=== PATIENT | female | born 1960 | race Caucasian/White ===

== ENCOUNTER 2020-01-15 18:24 | Inpatient (IN) | payer OTHER ==
[2020-01-15 19:46] LABS: Troponin I 0.022 ng/mL (< 0.028)
[2020-01-15] MEDS ORDERED: Acetaminophen 325 MG TAB PO PRN (20:59)
[2020-01-15] MEDS ORDERED: Acetaminophen 650 MG Suppository PR PRN (20:59)
[2020-01-15] MEDS ORDERED: Ondansetron PF 4 MG/2 ML Vial IVP PRN (20:59)
[2020-01-15] MEDS ORDERED: Calcium Carbonate 500 MG ChewTAB PO PRN (20:59)
[2020-01-15] MEDS ORDERED: HYDROcodone/Acetaminophen 5/325 mg Tablet PO PRN (20:59)
[2020-01-15] MEDS ORDERED: Dextrose 50% Abboject 50 ML SYRINGE SLOW IVP PRN (20:59)
[2020-01-15] MEDS ORDERED: Dextrose 5% in Water 1,000 ML IV PRN (20:59)
--- NOTE | 2020-01-15 21:12 | PDOC.HHP ---
Hospitalist HPI - History of Present Illness generalize weakness chest pain History of Present Illness: Case of an 59y/o female with pmhx of morbid obesity, dm, htn and hypercholesterolemia who comes to hospital due generalize weakness chest pain and sob. apparently patient was on he usual state of health until about a week ago when symptoms started. her chief complain is generalize weakness and dizziness but she also complains of chest pain, shortness of breath, nausea, fatigue, and sore throat for the past three days. The patient reports she has not taken any of her medications in over a month as she ran out. The patient was transferred from the [place] ER for chest pain rule out [place], hyperglycemia, hypoxia, and to rule out COVID. the patient was treated with insulin ivfs and abx and transfer to this institution for further workup and management. she reports feels much better at this time. patient reports anorexia for the last 3 days Hospitalist ROS - Review of Systems All other systems reviewed; all pertinent +/- noted in HPI/Subj Hospitalist History - Past Surgical History Past Surgical History: reports: Cholecystectomy Other Surgical History: oophorectomy - Family History Family History: reports: diabetes mellitus, hypertension - Social History Smoking Status: Never smoker Alcohol: reports: None Drugs: reports: none - Exam General Appearance: NAD, awake alert General - other findings: morbid obese ENT: normocephalic atraumatic, no oropharyngeal lesions Neck: supple, symmetric, no JVD Heart: RRR, no murmur, no gallops Respiratory: CTAB, no wheezes, no rales Gastrointestinal: soft, non-tender, non-distended Extremities: no cyanosis, no clubbing, no edema Skin: normal turgor, no lesions, no rashes Neurological: cranial nerve grossly intact, normal sensation to touch Musculoskeletal: normal tone, normal strength, no muscle wasting Psychiatric: normal affect, normal behavior, A&O x 3 Hospitalist Results - Labs Lab results: Troponin I 0.022 ng/mL (< 0.028) 01/15/20 19:14 - EKG Interpretation EKG: no ischemic st changes - Radiology Interpretation Chest x-ray Status: report reviewed by me Additional Comment: no consolidations infiltrates or effusion Hospitalist H&P A/P - Problem (1) Uncontrolled diabetes mellitus Code(s): E11.65 - TYPE 2 DIABETES MELLITUS WITH HYPERGLYCEMIA Status: Acute (2) SIRS (systemic inflammatory response syndrome) Code(s): R65.10 - SIRS OF NON-INFECTIOUS ORIGIN W/O ACUTE ORGAN DYSFUNCTION Status: Acute (3) Chest pain Code(s): R07.9 - CHEST PAIN, UNSPECIFIED Status: Acute (4) HTN (hypertension) Code(s): I10 - ESSENTIAL (PRIMARY) HYPERTENSION Status: Acute (5) Hyperlipidemia Code(s): E78.5 - HYPERLIPIDEMIA, UNSPECIFIED Status: Acute - Plan Plan: uncontrolled DM - transfer papers showed an initial sugar of 638 - treated with iv insulin and ivfs before transfer - will start long acting insulin and ss - will send a1c to help guide discharge therapy - pt resfers increased urine output - serum osmolality at 309 which is increased but not at a level for dx of hyperosmolar state - ivfs - probably the cause of her elevated LA and wbc due to dehydration secondary to uncontrolled DM - stopped taking medication 1m/a sirs - patient met sepsis criteria with elevated LA and elevated WBC no a clear source u/a clean, cxr clean f/u blood cultures - prophylactically started on rocephin - ivfs chest pain - described more as chest tightness - no acute ekg ischemic changes - trend troponins - monitor w telemetry - trend troponins -evaluated modifiable risk facotor w lipid panels and a1c htn / hypercholesterolemia -continue home meds
[2020-01-15] MEDS ORDERED: Insulin Glargine 20 UNITS in Pre-Filled Syringe 1 EACH SC SCH (22:30)
[2020-01-15 23:06] LABS: Troponin I 0.027 ng/mL (< 0.028)
[2020-01-16] MEDS: Sodium Chloride 0.9% 1,000 ML IV SCH ×2 (01:06→16:23)
[2020-01-16] MEDS ORDERED: cefTRIAXone\\ROCEPHIN 2 GM VIAL ONE (01:06)
[2020-01-16] MEDS: cefTRIAXone\\ROCEPHIN 2 GM in Sodium Chloride 0.9% 100 ML IVPB SCH ×2 (01:07→23:40)
[2020-01-16 01:53] LABS: Troponin I Less than 0.010 ng/mL (< 0.028)
[2020-01-16] MEDS ORDERED: Insulin Regular 300 UNITS/3 ML VIAL ONE (06:46)
[2020-01-16] MEDS ORDERED: HumaLOG 300 UNITS/3 ML VIAL ONE (06:46)
[2020-01-16] MEDS: HumaLOG 300 UNITS/3 ML VIAL SC PRN ×2 (06:50→17:22)
[2020-01-16 07:10] LABS: Hemoglobin A1c 12.1 % (4.0-6.0)
[2020-01-16 07:27] LABS: ALT (SGPT) 22 U/L (8-55); AST (SGOT) 19 U/L (5-34); Albumin 3.1 g/dL (3.5-5.0); Alkaline Phosphatase 122 U/L (40-110); Anion Gap 11 mmol/L (10-20); BUN (Urea Nitrogen) 11 mg/dL (9.8-20.1); Bilirubin, Total 0.6 mg/dL (0.2-1.2); Calc. Creatinine Clearance 0 mL/min (70-130); Calcium 7.6 mg/dL (7.8-10.44); Carbon Dioxide 28 mmol/L (22-29); Cardiac Risk 5.3 (Less than 4.5); Chloride 102 mmol/L (98-107); Cholesterol 169 mg/dl (< 200 Desired); Estimated GFR-MDRD 77; Globulin 3.6 g/dL (2.4-3.5); Glucose 330 mg/dL (70-105); HDL Cholesterol 32 mg/dL (>60 Neg Risk); LDL Cholesterol, Calculated 89 mg/dL; Potassium 4.5 mmol/L (3.5-5.1); Protein, Total 6.7 g/dL (6.0-8.3); Sodium 136 mmol/L (136-145); Triglycerides 242 mg/dL (Less than 150)
[2020-01-16 08:06] LABS: Eosinophils 3 % (0-10); Hemoglobin 13.2 g/dL (12.0-16.0); Lymphocytes 26 % (21-51); MDiff Complete? YES; Mean Corpuscular HGB CONC 32.7 g/dL (32.0-36.0); Mean Corpuscular Volume 88.5 fL (78.0-98.0); Mean Platelet Volume 9.4 fL (7.4-10.4); Monocytes 6 % (0-10); Neutrophil 65 % (42-75); Platelet Count 132 thou/uL (130-400); Platelet Morphology Comment Appears Adequate; RBC Morphology Normal; Red Blood Cell (RBC) Count 4.57 mill/uL (4.20-5.40)
[2020-01-16] MEDS ORDERED: Enoxaparin Sodium 40 MG/0.4 ML SYRINGE ONE (09:02)
[2020-01-16] MEDS: Enoxaparin Sodium 40 MG/0.4 ML SYRINGE SC SCH (09:13)
[2020-01-16] MEDS ORDERED: HumaLOG 300 UNITS/3 ML VIAL SC PRN (13:17)
--- NOTE | 2020-01-16 13:23 | PDOC.HOSPP ---
- Subjective Encounter Date: 01/16/20 Encounter Time: 13:18 Subjective: Patient feeling significantly better. States she has not complaints at present. Yesterday she came in due to being short of breath with chest pain. She had low sats according to the patient. She was given Vanc and Cefepime at [place] [facility], received 2.8 L NS IV and given 324 mg of ASA. Also given fluconazole for oral thrush. Known to have history of DM but noncompliant with medications. She has been on hold in the ED overnight. Admitted for ACS rule out and also COVID rule out. She has tested negative for COVID. Was recently started back on fluids due to low BP of 101 systolic, she is asymptomatic. - Objective Result Diagrams: 01/16/20 06:47 01/16/20 06:47 Additional Labs: Accuchecks 01/16/20 01/16/20 01/15/20 06:44 01:05 18:54 POC Glucose 279 H 343 H 338 H Radiology Reviewed by me: Yes EKG Reviewed by me: Yes Hospitalist ROS - Review of Systems Constitutional: denies: fever, chills, sweats, weakness, malaise, other Eyes: denies: pain, vision change, conjunctivae inflammation, eyelid inflammation, redness, other ENT: denies: ear pain, ear discharge, nose pain, nose discharge, nose congestion , mouth pain, mouth swelling, throat pain, throat swelling, other Respiratory: denies: cough, dry, shortness of breath, hemoptysis, SOB with excertion, pleuritic pain, sputum, wheezing, other Cardiovascular: denies: chest pain, palpitations, orthopnea, paroxysmal noc. dyspnea, edema, light headedness, other Gastrointestinal: denies: nausea, vomiting, abdominal pain, diarrhea, constipation, melena, hematochezia, other Genitourinary: denies: dysuria, frequency, incontinence, hematuria, retention, other Musculoskeletal: denies: neck pain, shoulder pain, arm pain, back pain, hand pain, leg pain, foot pain, other Skin: denies: rash, lesions, hailey, bruising, other Neurological: denies: weakness, numbness, incoordination, change in speech, confusion, seizures, other - Medication Medications: Active Medications Generic Name Dose Route Start Last Admin Trade Name Freq PRN Reason Stop Dose Admin Enoxaparin Sodium 40 mg 01/16/20 09:00 01/16/20 09:13 Lovenox SC 40 mg 0900 NAMRATA Administration Ceftriaxone Sodium 2 gm/ 100 mls @ 200 mls/hr 01/15/20 23:00 01/16/20 01:07 Sodium Chloride IVPB 100 mls 2300 NAMRATA Administration Sodium Chloride 1,000 mls @ 70 mls/hr 01/15/20 22:30 01/16/20 01:06 Normal Saline 0.9% IV 1,000 mls .[id number] NAMRATA Administration Insulin Human Lispro 0 units 01/15/20 20:59 01/16/20 06:50 Humalog SC 6 unit .MODERATE SLIDING SC PRN Administration Moderate Correctional Scale - Exam General Appearance: NAD, awake alert Eye: PERRL, anicteric sclera ENT - other findings: poor dentition, oral thrush Neck: supple, no lymphadenopathy Heart: RRR, no murmur, no gallops, no rubs, normal peripheral pulses Respiratory: CTAB, no wheezes, no rales, no ronchi, normal chest expansion Gastrointestinal: soft, non-tender, non-distended, normal bowel sounds, no guarding, no rigidity Extremities: no edema Skin: normal turgor, no lesions, no rashes Neurological: cranial nerve grossly intact, normal sensation to touch, no weakness Musculoskeletal: normal tone, normal strength, no muscle wasting Psychiatric: normal affect, normal behavior, A&O x 3 Hosp A/P (1) Shortness of breath Code(s): R06.02 - SHORTNESS OF BREATH Status: Resolved Plan: CXR negative. Tested negative for COVID. Monitor O2 sats. BNP added on to labs. Echo ordered. (2) Chest pain Code(s): R07.9 - CHEST PAIN, UNSPECIFIED Status: Resolved Plan: Troponins negative. Continue cardiac monitoring. Obtain D-dimer, given associated SOB she had yesterday. If +, will obtain CTA chest. Stress test ordered. (3) HTN (hypertension) Code(s): I10 - ESSENTIAL (PRIMARY) HYPERTENSION Status: Chronic Plan: BP is actually on low side. She is asymptomatic. Hold anithypertensives. Continue gentle hydration. Monitor BP. (4) Hyperlipidemia Code(s): E78.5 - HYPERLIPIDEMIA, UNSPECIFIED Status: Chronic Plan: Continue home meds. (5) Uncontrolled diabetes mellitus Code(s): E11.65 - TYPE 2 DIABETES MELLITUS WITH HYPERGLYCEMIA Status: Chronic Plan: Monitor glucose. Continue home medications. - Plan PT/OT Awaiting UA/UCx.
[2020-01-16 14:03] LABS: Lactic Acid 1.2 mmol/L (0.5-2.2)
[2020-01-16 16:12] VITALS: BMI 38.7
[2020-01-16 17:18] LABS: Bilirubin Negative (Negative); Blood, Urine Negative (Negative); Clarity Clear (Clear); Glucose, Urine (Dipstick) Greater than 1000 mg/dL (Negative); Ketone, Urine 10 mg/dL (Negative); Leukocyte 250 Leu/uL (Negative); Nitrite Negative (Negative); Protein, Urine (Dipstick) Negative (Neg-Trace); Specific Gravity, Urine 1.036 (1.002-1.036); pH, Urine 6.5 (5.0-9.0)
[2020-01-16 17:20] LABS: Bacteria/HPF 1+ HPF (None Seen)
[2020-01-16 17:22] LABS: Urine Culture Reflex No No
[2020-01-16] MEDS: Insulin Glargine 20 UNITS in Pre-Filled Syringe 1 EACH SC SCH (21:07)
[2020-01-17] MEDS: Sodium Chloride 0.9% 1,000 ML IV SCH ×2 (05:20→22:26)
--- NOTE | 2020-01-17 08:50 | PDOC.HOSPP ---
- Subjective Encounter Date: 01/17/20 Encounter Time: 11:00 Subjective: No further chest pain or SOB. Not needing oxygen. Patient denies recent surgery , immobilization, or trauma. No history of previous blood clots. Did have some bilateral calf cramping for the past week. - Objective Vital Signs & Weight: Vital Signs (12 hours) Temp Pulse Resp BP Pulse Ox 01/17/20 07:35 97.7 F 77 16 130/86 95 01/17/20 04:12 97.9 F 76 16 143/72 H 95 Weight Weight 217 lb I&O: 01/16/20 01/17/20 01/18/20 06:59 06:59 06:59 Intake Total 1460 Output Total 250 Balance 1210 Result Diagrams: 01/16/20 06:47 01/16/20 06:47 Hospitalist ROS - Review of Systems Constitutional: denies: fever, chills Respiratory: denies: cough, shortness of breath, SOB with excertion Cardiovascular: denies: chest pain, palpitations Gastrointestinal: denies: nausea, vomiting, abdominal pain - Medication Medications: Active Medications Generic Name Dose Route Start Last Admin Trade Name Freq PRN Reason Stop Dose Admin Enoxaparin Sodium 40 mg 01/16/20 09:00 01/16/20 09:13 Lovenox SC 40 mg 0900 NAMRATA Administration Ceftriaxone Sodium 2 gm/ 100 mls @ 200 mls/hr 01/15/20 23:00 01/16/20 23:40 Sodium Chloride IVPB 100 mls 2300 NAMRATA Administration Insulin Glargine 20 units/ 0.2 mls @ 0 mls/hr 01/16/20 21:00 01/16/20 21:07 Miscellaneous Medication SC 0.2 mls HS NAMRATA Administration Sodium Chloride 1,000 mls @ 70 mls/hr 01/15/20 22:30 01/17/20 05:20 Normal Saline 0.9% IV 1,000 mls .[id number] NAMRATA Administration Insulin Human Lispro 0 units 01/15/20 20:59 01/16/20 17:22 Humalog SC 8 unit .MODERATE SLIDING SC PRN Administration Moderate Correctional Scale Insulin Human Lispro 0 units 01/16/20 13:17 01/16/20 21:05 Humalog SC 4 unit .BEDTIME SLIDING SC PRN Administration Bedtime Correctional Scale - Exam General Appearance: NAD, awake alert ENT: moist mucosa Heart: RRR, no murmur, no gallops, no rubs Respiratory: CTAB, no wheezes, no rales, no ronchi Gastrointestinal: soft, non-tender, non-distended, normal bowel sounds Extremities: no edema Extremities - other findings: right calf appears a bit larger than left Psychiatric: normal affect, normal behavior, A&O x 3 Hosp A/P (1) Chest pain Code(s): R07.9 - CHEST PAIN, UNSPECIFIED Status: Resolved (2) Shortness of breath Code(s): R06.02 - SHORTNESS OF BREATH Status: Resolved (3) SIRS (systemic inflammatory response syndrome) Code(s): R65.10 - SIRS OF NON-INFECTIOUS ORIGIN W/O ACUTE ORGAN DYSFUNCTION Status: Resolved (4) HTN (hypertension) Code(s): I10 - ESSENTIAL (PRIMARY) HYPERTENSION Status: Chronic (5) Hyperlipidemia Code(s): E78.5 - HYPERLIPIDEMIA, UNSPECIFIED Status: Chronic (6) Uncontrolled diabetes mellitus Code(s): E11.65 - TYPE 2 DIABETES MELLITUS WITH HYPERGLYCEMIA Status: Chronic - Plan Patient with elevated D-dimer, CTA ordered and positive for left sided PE Covid negative Will start full anticoagulation with Lovenox. Not needing O2 and symptoms improved. Will check LE u/s. Can likely transition to oral anticoagulation and d/c tomorrow.
--- NOTE | 2020-01-17 10:21 | CT ---
EXAM: CTA of the chest HISTORY: Cough and shortness of breath with elevated d-dimer COMPARISON: None TECHNIQUE: Multiple contiguous axial images were obtained a CTA of the chest with contrast per pulmon urszula embolism protocol. 3-D oblique MIP reformats and direct coronal reformats were performed. FINDINGS: HEART: Normal in size without focal cardiac abnormality. PULMONARY ARTERIES: Multiple filling defects are seen in the pulmonary artery branches in the left ryland ng. No filling defects are seen on the right. No shift in the interventricular septum of the heart is seen to suggest right heart overload. MEDIASTINUM: No hilar or mediastinal lymphadenopathy. LUNGS: No focal infiltrates or masses. PLEURAL SPACE: No pleural effusion or pneumothorax. CHEST WALL SOFT TISSUES: Unremarkable VISUALIZED OSSEOUS STRUCTURES: Degenerative changes in the spine. VISUALIZED SUBDIAPHRAGMATIC STRUCTURES: Status post cholecystectomy IMPRESSION: Left-sided pulmonary emboli as above. The patient's nurse Chet was notified of findings at 10:17 AM on 01/17/2020. She stated she would im mediately get ahraphael of Dr. Mendieta to tell him the results.
[2020-01-17] MEDS ORDERED: Enoxaparin Sodium 60 MG/0.6 ML SYRINGE SC SCH (10:30)
[2020-01-17] MEDS ORDERED: metFORMIN 500 MG TAB PO SCH ×2 (10:45→17:00)
[2020-01-17] MEDS: Aspirin 81 mg Enteric Coated Tablet PO SCH (11:14)
[2020-01-17] MEDS: Enoxaparin Sodium 40 MG/0.4 ML SYRINGE SC SCH (11:14)
[2020-01-17] MEDS: HumaLOG 300 UNITS/3 ML VIAL SC PRN ×2 (12:19→17:52)
[2020-01-17] MEDS ORDERED: Iopamidol-370 76% 500 ML 1 ML ONE (13:20)
--- NOTE | 2020-01-17 14:39 | ULT ---
EXAM: Bilateral lower extremity venous ultrasound HISTORY: Pulmonary emboli with leg cramps COMPARISON: CTA chest 01/17/2020 TECHNIQUE: Multiplanar grayscale and color Doppler images were obtained in a bilateral lower extremit y venous ultrasound. Spectral analysis of the Doppler waveforms were performed. FINDINGS: The bilateral common femoral vein, profunda femoral veins, superficial femoral veins, and p opliteal veins are normal in appearance without visible thrombus. These vessels demonstrate normal compression, flow, and augmentation. The bilateral posterior tibial veins and greater saphenous veins are patent without evidence of throm bus. IMPRESSION: No evidence of DVT.
[2020-01-17] MEDS: Insulin Glargine 20 UNITS in Pre-Filled Syringe 1 EACH SC SCH (20:44)
[2020-01-17] MEDS ORDERED: Enoxaparin Sodium 100 MG/ML SYRINGE SC SCH (21:00)
[2020-01-17] MEDS ORDERED: glipiZIDE 5 MG TAB PO SCH (21:00)
[2020-01-17] MEDS: cefTRIAXone\\ROCEPHIN 2 GM in Sodium Chloride 0.9% 100 ML IVPB SCH (23:47)
[2020-01-18] MEDS: Lisinopril 20 MG TAB PO SCH (08:32)
[2020-01-18] MEDS: Aspirin 81 mg Enteric Coated Tablet PO SCH (08:33)
[2020-01-18] MEDS: Apixaban 5 MG TAB PO SCH ×2 (08:33→20:55)
[2020-01-18] MEDS: glipiZIDE 10 MG TAB PO SCH ×2 (08:33→17:12)
--- NOTE | 2020-01-18 09:49 | PDOC.HOSPP ---
- Subjective Encounter Date: 01/18/20 Encounter Time: 09:00 Subjective: Patient seen and examined for resp failure. SOB improving. No CP. No fever or chills. No new complaints. No overnight events - Objective Vital Signs & Weight: Vital Signs (12 hours) Temp Pulse Resp BP BP BP Pulse Ox 01/18/20 08:32 129/69 01/18/20 08:25 98.1 F 85 20 129/69 96 01/18/20 03:11 97.6 F 77 16 147/82 H 95 Weight Weight 216 lb I&O: 01/17/20 01/18/20 01/19/20 06:59 06:59 06:59 Intake Total 1460 480 770 Output Total 250 500 Balance 1210 480 270 Result Diagrams: 01/16/20 06:47 01/16/20 06:47 Radiology Reviewed by me: Yes (CTA - PE) EKG Reviewed by me: Yes (Tele SR) Hospitalist ROS - Review of Systems Respiratory: reports: SOB with excertion. denies: cough, dry, shortness of breath, hemoptysis, pleuritic pain, sputum, wheezing, other Cardiovascular: denies: chest pain, palpitations, orthopnea, paroxysmal noc. dyspnea, edema, light headedness, other Gastrointestinal: denies: nausea, vomiting, abdominal pain, diarrhea, constipation, melena, hematochezia, other - Medication Medications: Active Medications Generic Name Dose Route Start Last Admin Trade Name Freq PRN Reason Stop Dose Admin Apixaban 10 mg 01/18/20 09:00 01/18/20 08:33 Eliquis PO 01/24/20 21:01 10 mg BID NAMRATA Administration Aspirin 81 mg 01/17/20 09:00 01/18/20 08:33 Ecotrin PO 81 mg DAILY NAMRATA Administration Glipizide 10 mg 01/18/20 08:00 01/18/20 08:33 Glucotrol PO 10 mg BID-WM NAMRATA Administration Ceftriaxone Sodium 2 gm/ 100 mls @ 200 mls/hr 01/15/20 23:00 01/17/20 23:47 Sodium Chloride IVPB 100 mls 2300 NAMRATA Administration Insulin Glargine 20 units/ 0.2 mls @ 0 mls/hr 01/16/20 21:00 01/17/20 20:44 Miscellaneous Medication SC 0.2 mls HS NAMRATA Administration Sodium Chloride 1,000 mls @ 70 mls/hr 01/15/20 22:30 01/17/20 22:26 Normal Saline 0.9% IV 1,000 mls .[id number] NAMRATA Administration Insulin Human Lispro 0 units 01/15/20 20:59 01/17/20 17:52 Humalog SC 6 unit .MODERATE SLIDING SC PRN Administration Moderate Correctional Scale Insulin Human Lispro 0 units 01/16/20 13:17 01/16/20 21:05 Humalog SC 4 unit .BEDTIME SLIDING SC PRN Administration Bedtime Correctional Scale Lisinopril 40 mg 01/18/20 09:00 01/18/20 08:32 Zestril PO 40 mg DAILY NAMRATA Administration Metformin HCl 500 mg 01/17/20 17:00 01/17/20 16:48 Glucophage PO 500 mg BID-WM NAMRATA Administration - Exam General Appearance: NAD Heart: RRR, no gallops Respiratory: no wheezes, no ronchi Gastrointestinal: non-tender, non-distended, normal bowel sounds Extremities: no cyanosis Neurological: no new deficit Hosp A/P - Plan Acute hypoxic resp failure due to Acute PE - O2 sats 88 RA at ER - POA Uncontrolled DM2 Obesity BMI 39.5 HTN CKD 2 Dyslipidemia PLAN: Change Lovenox to Eliquis - Pt understands the risk associated with anticoag Increase Glipizide Add Lantus Cont Statins Cont Lisinopril DC ASA DC Atbx - Sepsis ruled out Hold Metformin due to IV contrast Consult Senior Applications Analyst AM labs DC in 24 hr if stable Insulin teaching - Pt is new to Insulin
[2020-01-18] MEDS ORDERED: Dextrose 5% in Water 1,000 ML IV PRN (09:59)
[2020-01-18] MEDS: HumaLOG 300 UNITS/3 ML VIAL SC PRN ×2 (13:04→17:11)
[2020-01-18] MEDS: Insulin Glargine 20 UNITS in Pre-Filled Syringe 1 EACH SC SCH (20:55)
[2020-01-18] MEDS ORDERED: Atorvastatin Calcium 40 MG TAB PO SCH (21:00)
[2020-01-19 04:30] LABS: #Eosinphils 0.3 thou/uL (0.0-0.7); #Lymphocytes 2.8 thou/uL (1.20-3.40); #Monocytes 0.6 thou/uL (0.11-0.59); #Neutrophils 3.8 thou/uL (1.40-6.50); %Basophils 0.4 % (0.0-1.0); %Eosinophils 3.6 % (0.0-10.0); %Monocytes 8.3 % (0.0-10.0); %Neutrophils 50.7 % (42.0-75.0); Hemoglobin 13.7 g/dL (12.0-16.0); Mean Corpuscular HGB CONC 31.7 g/dL (32.0-36.0); Mean Corpuscular Hemoglobin 28.2 pg (27.0-31.0); Mean Platelet Volume 9.4 fL (7.4-10.4); Platelet Count 146 thou/uL (130-400); RBC Distribution Width 12.2 % (11.5-14.5); Red Blood Cell (RBC) Count 4.85 mill/uL (4.20-5.40); White Blood Cell (WBC) Count 7.5 thou/uL (4.8-10.8)
[2020-01-19] MEDS: HumaLOG 300 UNITS/3 ML VIAL SC PRN ×2 (05:08→08:41)
[2020-01-19 05:27] LABS: Anion Gap 9 mmol/L (10-20); BUN (Urea Nitrogen) 12 mg/dL (9.8-20.1); Calc. Creatinine Clearance 127 mL/min (70-130); Calcium 8.4 mg/dL (7.8-10.44); Carbon Dioxide 28 mmol/L (22-29); Chloride 105 mmol/L (98-107); Estimated GFR-MDRD 80; Glucose 206 mg/dL (70-105); Magnesium 1.8 mg/dL (1.6-2.6); Potassium 3.8 mmol/L (3.5-5.1); Sodium 138 mmol/L (136-145)
[2020-01-19] MEDS: Lisinopril 20 MG TAB PO SCH (08:38)
[2020-01-19] MEDS: glipiZIDE 10 MG TAB PO SCH (08:38)
[2020-01-19] MEDS: Apixaban 5 MG TAB PO SCH (08:38)
[2020-01-19 08:49] VITALS: BP 110/69; TEMP 97.6
--- NOTE | 2020-01-19 12:17 | DIS ---
DATE OF ADMISSION: 01/15/2020 DATE OF DISCHARGE: 01/19/2020 DISCHARGE DISPOSITION: Home. FOLLOW UP: Followup with Alyssa Barnard in 1 week. ALLERGIES: THE PATIENT IS ALLERGIC TO CODEINE. DISCHARGE MEDICATION: 1. Glipizide 10 mg twice daily. 2. Metformin 1000 mg b.i.d. 3. Eliquis 10 mg twice daily for 1 week, then 5 mg twice daily. 4. Lisinopril 40 mg daily. 5. Lipitor 40 mg daily. The patient was seen and examined on the day of discharge. Denies any new complaints. No chest pain, shortness of breath, palpitations reported. The patient was advised to monitor blood sugars on a daily basis and to maintain a log. If her blood sugar remains elevated, she was given a prescription of Lantus 10 units daily. BRIEF HOSPITAL COURSE: The patient is a 59-year-old female with obesity, diabetes mellitus type 2, hypertension, and hyperlipidemia, presented to the hospital with chest discomfort along with shortness of breath. She was monitored on the Telemetry Unit. Her serial troponins remained negative. Her D-dimer was elevated at 0.98. For this reason, a CT angiogram of the chest was done on 17 January 2020, that was consistent with multiple filling defects in the pulmonary artery branches in the left lung. She was started on Lovenox that has been transitioned to Eliquis. The patient understands the consequences of Eliquis, not limited to life threatening bleeding. Echocardiogram showed ejection fraction of 50% to 55% with mild mitral regurgitation and mild tricuspid regurgitation. The patient was also found to have uncontrolled blood sugar with A1c of 12.1. Her blood glucose on admission was 638. She has been started on long-acting insulin. The patient prefers to be on oral hypoglycemics. For this reason, glipizide dose has been increased. She will continue metformin as well. She was advised to monitor blood sugars on a daily basis and to start Lantus 10 units daily, if her blood sugars remained persistently elevated. Eventually, the patient may need transitioning to Lantus completely along with metformin. She also had COVID testing done on admission that was negative. The patient was empirically placed on IV antibiotics initially for suspected UTI that was ruled out. Her blood cultures remained negative. FINAL DIAGNOSES: 1. Chest discomfort along with shortness of breath on admission. 2. Acute hypoxic respiratory failure with oxygen saturation of 88% in the emergency room secondary to pulmonary embolism. 3. Diabetes mellitus type 2, uncontrolled with blood sugars over 600. 4. Hypertension. 5. Chronic kidney disease stage 2. 6. Dyslipidemia. 7. Obesity with a body mass index of 39.5. 8. Leukocytosis on admission, unlikely to be infectious. 9. Mild acute kidney injury with creatinine of 1.24 present on admission. Creatinine at discharge is 0.74. 10. Hyponatremia with sodium of 134 on admission. 11. Lactic acidosis on admission, probably secondary to dehydration from osmotic diuresis, present on admission. TIME COORDINATING THE DISCHARGE OF THIS PATIENT: 33 minutes. The patient was extensively counseled on blood thinners as well as insulin along with its complication. The patient understands the above plan of care. The patient may benefit from a repeat basic metabolic check after one month. Job ID: [id number]
[2020-01-25] MEDS ORDERED: Apixaban 5 MG TAB PO SCH (09:00)
== END 2020-01-19 11:49 | disposition home or self-care (01) | DRG 175 ==
LOC: ERS 18:24 → ERHOLD 20:24 → 2NO 01-16 15:51
PROVIDERS: ADMIT Internal Medicine; ATTEND Internal Medicine
DX: I26.99 Other pulmonary embolism without acute cor pulmonale (principal); J96.01 Acute respiratory failure with hypoxia; N17.9 Acute kidney failure, unspecified; E87.1 Hypo-osmolality and hyponatremia; E87.2 Acidosis; R65.10 Systemic inflammatory response syndrome (SIRS) of non-infectious origin without acute organ dysfunction; E11.22 Type 2 diabetes mellitus with diabetic chronic kidney disease; Z20.828 Contact with and (suspected) exposure to other viral communicable diseases; E86.0 Dehydration; I12.9 Hypertensive chronic kidney disease with stage 1 through stage 4 chronic kidney disease, or unspecified chronic kidney disease; E78.00 Pure hypercholesterolemia, unspecified; N18.2 Chronic kidney disease, stage 2 (mild); I08.1 Rheumatic disorders of both mitral and tricuspid valves; E78.5 Hyperlipidemia, unspecified; E66.01 Morbid (severe) obesity due to excess calories; Z68.39 Body mass index [BMI] 39.0-39.9, adult; Z90.49 Acquired absence of other specified parts of digestive tract; Z79.84 Long term (current) use of oral hypoglycemic drugs
CPT/HCPCS: 36415; 36416; 71275; 80048; 80053; 80061; 81001; 83036; 83605; 83735; 83880; 84145; 84484; 85007; 85025; 85027; 85379; 93306; 93970; 94760; 99285; J0696; J1650; J1815; J3490; Q9967; U0002

== ENCOUNTER 2020-03-09 08:16 | Outpatient (CLI) | payer OTHER ==
--- NOTE | 2020-03-09 09:31 | BD ---
DEXA BONE DENSITY STUDY: HISTORY: Postmenopausal. FINDINGS: Lumbar Spine: BMD (g/cm2) L1 0.974 T-Score: -0.1 L2 0.975 T-Score: -0.5 L3 1.069 T-Score: -0.1 L4 0.924 T-Score: -1.2 L1-L4 0.985 T-Score: -0.6 Left: Femoral Neck: 0.663 T-Score: -1.7 Total Femur: 0.949 T-Score: +0.1 Impression: Osteopenia of the left femoral neck and normal bone mineral density of the lumbar spine. POS: ZACHARY
== END 2020-03-09 08:17 | disposition home or self-care (01) ==
LOC: BICMAMMO 08:16
PROVIDERS: ATTEND Registered Nurse
DX: Z13.820 Encounter for screening for osteoporosis (principal); Z78.0 Asymptomatic menopausal state; M85.89 Other specified disorders of bone density and structure, multiple sites
CPT/HCPCS: 77067; 77080

== ENCOUNTER 2021-11-02 08:26 | Observation (INO) | payer OTHER ==
[2021-11-02 08:57] LABS: #Basophils 0.1 thou/uL (0.0-0.2); #Eosinphils 0.2 thou/uL (0.0-0.7); #Lymphocytes 2.6 thou/uL (1.20-3.40); #Monocytes 0.7 thou/uL (0.11-0.59); %Basophils 0.9 % (0.0-1.0); %Eosinophils 3.3 % (0.0-10.0); %Lymphocytes 34.4 % (21.0-51.0); %Monocytes 8.9 % (0.0-10.0); %Neutrophils 52.6 % (42.0-75.0); Hemoglobin 12.6 g/dL (12.0-16.0); Mean Corpuscular HGB CONC 31.9 g/dL (32.0-36.0); Mean Corpuscular Hemoglobin 29.3 pg (27.0-31.0); Mean Corpuscular Volume 92.1 fL (78.0-98.0); Mean Platelet Volume 7.5 fL (7.4-10.4); Platelet Count 207 thou/uL (130-400); RBC Distribution Width 12.9 % (11.5-14.5); Red Blood Cell (RBC) Count 4.31 mill/uL (4.20-5.40); White Blood Cell (WBC) Count 7.6 thou/uL (4.8-10.8)
[2021-11-02 09:30] LABS: ALT (SGPT) 29 U/L (8-55); AST (SGOT) 25 U/L (5-34); Albumin 3.8 g/dL (3.4-4.8); Alkaline Phosphatase 111 U/L (40-110); Anion Gap 11 mmol/L (10-20); BUN (Urea Nitrogen) 19 mg/dL (9.8-20.1); Bilirubin, Total 0.4 mg/dL (0.2-1.2); Calc. Creatinine Clearance 0 mL/min (70-130); Calcium 9.7 mg/dL (7.8-10.44); Carbon Dioxide 28 mmol/L (23-31); Chloride 106 mmol/L (98-107); Globulin 4.2 g/dL (2.4-3.5); Glucose 62 mg/dL (80-115); Lipase 37 U/L (8-78); Magnesium 1.7 mg/dL (1.6-2.6); Potassium 3.8 mmol/L (3.5-5.1); Sodium 141 mmol/L (136-145)
[2021-11-02 11:29] LABS: Bilirubin Negative (Negative); Blood, Urine Negative (Negative); Clarity Clear (Clear); Glucose, Urine (Dipstick) Normal (Negative); Ketone, Urine Negative (Negative); Leukocyte Negative Leu/uL (Negative); Nitrite Negative (Negative); Protein, Urine (Dipstick) Negative (Neg-Trace)
[2021-11-02] MEDS ORDERED: Acetaminophen 325 MG TAB PO PRN (14:40)
[2021-11-02] MEDS ORDERED: Ondansetron ODT 4 MG TAB PO PRN (14:40)
[2021-11-02] MEDS ORDERED: HumaLOG 300 UNITS/3 ML VIAL SC PRN ×2 (14:41)
[2021-11-02] MEDS ORDERED: Dextrose 50% Abboject 50 ML SYRINGE SLOW IVP PRN (14:41)
[2021-11-02] MEDS ORDERED: Dextrose 5% in Water 1,000 ML IV PRN (14:41)
[2021-11-02] MEDS ORDERED: Furosemide 20 MG/2 ML VIAL SLOW IVP SCH (14:45)
[2021-11-02 15:59] VITALS: BMI 47.2
[2021-11-02] MEDS: Apixaban 5 MG TAB PO SCH (19:34)
[2021-11-02] MEDS ORDERED: Atorvastatin Calcium 40 MG TAB PO SCH (21:00)
[2021-11-03 04:44] LABS: #Basophils 0.1 thou/uL (0.0-0.2); #Eosinphils 0.3 thou/uL (0.0-0.7); #Lymphocytes 2.4 thou/uL (1.20-3.40); #Monocytes 0.6 thou/uL (0.11-0.59); %Basophils 0.8 % (0.0-1.0); %Eosinophils 3.5 % (0.0-10.0); %Lymphocytes 32.5 % (21.0-51.0); %Monocytes 8.7 % (0.0-10.0); %Neutrophils 54.6 % (42.0-75.0); Hemoglobin 11.7 g/dL (12.0-16.0); Mean Corpuscular HGB CONC 31.9 g/dL (32.0-36.0); Mean Corpuscular Hemoglobin 29.5 pg (27.0-31.0); Mean Corpuscular Volume 92.4 fL (78.0-98.0); Mean Platelet Volume 7.7 fL (7.4-10.4); Platelet Count 179 thou/uL (130-400); RBC Distribution Width 13.1 % (11.5-14.5); Red Blood Cell (RBC) Count 3.98 mill/uL (4.20-5.40); White Blood Cell (WBC) Count 7.4 thou/uL (4.8-10.8)
[2021-11-03 05:04] LABS: Anion Gap 10 mmol/L (10-20); BUN (Urea Nitrogen) 18 mg/dL (9.8-20.1); Calc. Creatinine Clearance 128 mL/min (70-130); Calcium 8.9 mg/dL (7.8-10.44); Carbon Dioxide 30 mmol/L (23-31); Chloride 105 mmol/L (98-107); Glucose 98 mg/dL (80-115); Magnesium 1.7 mg/dL (1.6-2.6); Potassium 3.5 mmol/L (3.5-5.1); Sodium 141 mmol/L (136-145)
[2021-11-03] MEDS ORDERED: Furosemide 20 MG/2 ML VIAL SLOW IVP SCH (09:00)
[2021-11-03 09:12] VITALS: TEMP 97.6
[2021-11-03] MEDS: Apixaban 5 MG TAB PO SCH (09:31)
[2021-11-03 12:22] VITALS: BP 109/57
[2021-11-03 12:22] LABS: SARS-CoV-2 PCR by NAA Not Detected (NotDetected)
== END 2021-11-03 13:55 | disposition home or self-care (01) ==
LOC: ERS 08:26 → 2SW 13:22
PROVIDERS: ADMIT Internal Medicine; ATTEND Internal Medicine
DX: J96.01 Acute respiratory failure with hypoxia (principal); R53.1 Weakness; I10 Essential (primary) hypertension; E78.5 Hyperlipidemia, unspecified; E78.00 Pure hypercholesterolemia, unspecified; E11.9 Type 2 diabetes mellitus without complications; R29.6 Repeated falls; E66.01 Morbid (severe) obesity due to excess calories; Z68.42 Body mass index [BMI] 45.0-49.9, adult; Z86.711 Personal history of pulmonary embolism; Z79.01 Long term (current) use of anticoagulants; Z79.4 Long term (current) use of insulin; Z79.84 Long term (current) use of oral hypoglycemic drugs; Z79.899 Other long term (current) drug therapy; Z88.5 Allergy status to narcotic agent; Z20.822 Contact with and (suspected) exposure to COVID-19
CPT/HCPCS: 36415; 36416; 70450; 71045; 71275; 80048; 80053; 81003; 83690; 83735; 83880; 84484; 85025; 85379; 93005; 93306; 93970; 94760; 96374; 96376; G0378; J1940; U0003; U0005

== ENCOUNTER 2021-12-06 07:52 | Outpatient (CLI) | payer OTHER | END 2021-12-06 07:53 | disposition home or self-care (01) | LOC: BICMAMMO 07:52 | PROVIDERS: ATTEND Registered Nurse | DX: Z12.31 Encounter for screening mammogram for malignant neoplasm of breast (principal); Z13.820 Encounter for screening for osteoporosis; M85.89 Other specified disorders of bone density and structure, multiple sites; Z80.3 Family history of malignant neoplasm of breast; Z78.0 Asymptomatic menopausal state | CPT/HCPCS: 77067; 77080 ==